=== PATIENT | male | born 1975 | race Caucasian/White ===

== ENCOUNTER 2017-05-04 18:50 | Emergency (ER) | payer MEDICARE ==
[~2017-05-04] VITALS: Ht 182.9 cm; Wt 79.5 kg
[~2017-05-04 18:50] MED LIST: NOVORP2
[2017-05-04 18:52] VITALS: BP 256/169; PULSE 111; RESP 16; TEMP 99.2; O2SAT 98
--- NOTE | 2017-05-04 21:54 | PD ---
Physical Exam Date Seen by Provider: May 04, 2017 Time Seen by Provider: 20:08 Narrative 41-year-old male presents to the emergency department reporting infection to right foot for one month. Dressing is in place. Patient shows me a picture on his phone in triage. He has purulent drainage from all digits. He states he has a history of necrotizing fasciitis in that same foot as well as MRSA. Data Data Last Documented VS Vital Signs Date Time Temp Pulse Resp B/P (MAP) Pulse Ox O2 Delivery O2 Flow Rate FiO2 05/04/17 18:52 99.2 111 16 256/169 (198) 98 Room Air MDM Supervised Visit with MAXINE: No Narrative Course 41-year-old male presents to the emergency department for evaluation of infection to his right foot. Patient was initially evaluated in triage. He left AGAINST MEDICAL ADVICE before he could be moved to medical bed. Diagnosis Primary Impression: Left against medical advice Disposition: 07 AGAINST MEDICAL ADVICE Eileen Oconnell May 04, 2017 21:54
== END 2017-05-04 20:08 | disposition left against medical advice (07) ==
LOC: NED 18:50
DX: L08.9 Local infection of the skin and subcutaneous tissue, unspecified (principal)
CPT/HCPCS: 99281